=== PATIENT | female | born 1960 | race Two or more races ===

== ENCOUNTER 2022-06-25 06:11 | Day surgery (SDC) | payer OTHER ==
[2022-06-19 13:18] VITALS: BMI 35.1
[2022-06-25] MEDS ORDERED: DEXAMETHASONE SOD PHOSPHATE 10 MG/1 ML VIAL ONE (07:49)
[2022-06-25] MEDS ORDERED: MIDAZOLAM HCL 2 MG/2 ML SINGLE DOSE VIAL ONE (07:49)
[2022-06-25] MEDS ORDERED: ROPIVACAINE HCL 0.5% 30ML VIAL ONE (07:49)
[2022-06-25] MEDS ORDERED: PROPOFOL 20 ML ONE (08:30)
[2022-06-25] MEDS ORDERED: ceFAZolin SODIUM 1 GM VIAL ONE (08:48)
[2022-06-25] MEDS ORDERED: EPINEPHrine 1:1,000 1,000 MCG/ML ML ONE (08:54)
[2022-06-25] MEDS ORDERED: ONDANSETRON 4 MG/2 ML VIAL ONE ×2 (09:00→10:40)
[2022-06-25] MEDS ORDERED: DEXAMETHASONE SOD PHOSPHATE 4 MG/1 ML VIAL ONE (09:00)
[2022-06-25] MEDS ORDERED: KETOROLAC TROMETHAMINE 30 MG/1 ML VIAL ONE (10:40)
[2022-06-25] MEDS ORDERED: oxyCODONE HCL 5 MG TABLET PO PRN ×2 (11:46)
[2022-06-25] MEDS ORDERED: ONDANSETRON 4 MG/2 ML VIAL IVPUSH PRN (11:46)
[2022-06-25] MEDS ORDERED: LACTATED RINGERS SOLUTION 1,000 ML IV SCH (12:00)
[2022-06-25 12:30] VITALS: TEMP 97.5
[2022-06-25 14:19] VITALS: BP 142/78; PULSE 80; RESP 18
== END 2022-06-25 14:00 | disposition home or self-care (01) ==
LOC: FASUSAT 06:11 → UNDOADMIN 06:11 → FM/S 06:11 → EDSTATUS 08:00 → FASUSAT 14:00 → UNDODISIN 14:00
PROVIDERS: ATTEND Orthopaedic Surgery Sports Medicine
PROC: 0PBB4ZZ Excision of Left Clavicle, Percutaneous Endoscopic Approach (ICD-10-PCS; principal; 2022-06-25 09:11)
PROC: 0LS44ZZ Reposition Left Upper Arm Tendon, Percutaneous Endoscopic Approach (ICD-10-PCS; 2022-06-25 09:11)
PROC: 0RBK4ZZ Excision of Left Shoulder Joint, Percutaneous Endoscopic Approach (ICD-10-PCS; 2022-06-25 09:11)
DX: S46.012A Strain of muscle(s) and tendon(s) of the rotator cuff of left shoulder, initial encounter (principal); M75.22 Bicipital tendinitis, left shoulder; M75.52 Bursitis of left shoulder; M65.821 Other synovitis and tenosynovitis, right upper arm; S43.432A Superior glenoid labrum lesion of left shoulder, initial encounter; M19.012 Primary osteoarthritis, left shoulder; X58.XXXA Exposure to other specified factors, initial encounter; Y93.9 Activity, unspecified; Y92.9 Unspecified place or not applicable
CPT/HCPCS: 94760; C1713; C9803-CS; J1100; U0003; U0005

== ENCOUNTER 2023-03-04 06:12 | Day surgery (SDC) | payer OTHER ==
[2023-02-27 16:22] VITALS: BMI 36.2
[2023-03-04] MEDS ORDERED: MIDAZOLAM HCL 2 MG/2 ML SINGLE DOSE VIAL ONE ×2 (07:32→07:44)
[2023-03-04] MEDS ORDERED: PROPOFOL 40 ML ONE ×2 (07:32→10:20)
[2023-03-04] MEDS ORDERED: VANCOMYCIN 1,000 MG VIAL (RESTRICTED TO ID ONLY) ONE ×3 (07:33→08:40)
[2023-03-04] MEDS ORDERED: BUPIVACAINE HCL/PF 0.5% (5MG/ML) 10 ML VIAL ONE (07:44)
[2023-03-04] MEDS ORDERED: BUPIVACAINE LIPOSOME/PF (EXPAREL) 266 MG/20 ML VIAL ONE (07:44)
[2023-03-04] MEDS ORDERED: TRANEXAMIC ACID 1000 MG/10 ML VIAL IVPUSH ONE (08:00)
[2023-03-04] MEDS ORDERED: ceFAZolin SODIUM 1 GM VIAL ONE (08:40)
[2023-03-04] MEDS ORDERED: ONDANSETRON 4 MG/2 ML VIAL ONE (08:40)
[2023-03-04] MEDS ORDERED: LIDOCAINE HCL/PF 2% SDV 5ML VIAL ONE (08:40)
[2023-03-04] MEDS ORDERED: ONDANSETRON 4 MG/2 ML VIAL IVPUSH PRN ×3 (09:11→15:13)
[2023-03-04] MEDS ORDERED: oxyCODONE HCL 5 MG TABLET PO PRN ×2 (09:12→10:27)
[2023-03-04] MEDS ORDERED: LACTATED RINGERS SOLUTION 1,000 ML IV SCH ×2 (09:15→11:00)
[2023-03-04] MEDS ORDERED: TRANEXAMIC ACID 1000 MG/10 ML VIAL ONE (09:59)
[2023-03-04] MEDS ORDERED: BUPIVICAINE 0.25%/MORPH PF/KETOROLAC - 51ML DISP.SYRINGE IA ONE (10:07)
[2023-03-04] MEDS ORDERED: IBUPROFEN 800 MG/8 ML IJ IVPB PRN (10:27)
[2023-03-04] MEDS ORDERED: ACETAMINOPHEN 325 MG TABLET (FP) PO PRN (10:27)
[2023-03-04] MEDS ORDERED: SIMETHICONE 80 MG TAB.CHEW (FP) PO PRN (10:27)
[2023-03-04] MEDS ORDERED: MAG HYDROX/AL HYDROX/SIMETH 30 ML UNIT-DOSE CUP PO PRN (10:59)
[2023-03-04] MEDS ORDERED: MAGNESIUM HYDROX 2400MG/30ML ORAL SUSPENSION 30 ML CUP PO PRN (10:59)
[2023-03-04] MEDS ORDERED: ACETAMINOPHEN INJECTION 100 ML IVPB ONE (11:12)
[2023-03-04] MEDS: ACETAMINOPHEN 1000 MG/100 ML BAG IVPB ONE (11:14)
[2023-03-04] MEDS: oxyCODONE HCL 10 MG SUSTAINED ACTING TABLET PO SCH ×2 (16:19→22:03)
[2023-03-04 16:40] VITALS: RESP 18
[2023-03-04] MEDS: CEFAZOLIN SODIUM 2 GM in DEXTROSE 5%-WATER 100 ML IVPB SCH (17:17)
[2023-03-04] MEDS: KETOROLAC TROMETHAMINE 30 MG/1 ML VIAL IVPUSH SCH (17:31)
[2023-03-04] MEDS: ACETAMINOPHEN 500 MG TABLET (FP) PO SCH (18:11)
[2023-03-04] MEDS ORDERED: MIRTAZAPINE 15 MG TABLET (FP) PO SCH (22:00)
[2023-03-04] MEDS: GABAPENTIN 100 MG CAPSULE PO SCH (22:02)
[2023-03-04] MEDS: SENNOSIDES/DOCUSATE COMBO (SENNA PLUS) TABLET (UD) PO SCH (22:06)
[2023-03-05] MEDS: ACETAMINOPHEN 500 MG TABLET (FP) PO SCH ×3 (00:57→12:11)
[2023-03-05] MEDS: CEFAZOLIN SODIUM 2 GM in DEXTROSE 5%-WATER 100 ML IVPB SCH ×2 (01:00→09:12)
[2023-03-05] MEDS: ACETAMINOPHEN 1000 MG/100 ML BAG IVPB ONE (04:57)
[2023-03-05] MEDS: oxyCODONE HCL 5 MG TABLET PO PRN ×2 (05:38→12:11)
[2023-03-05] MEDS: KETOROLAC TROMETHAMINE 30 MG/1 ML VIAL IVPUSH SCH (07:44)
[2023-03-05 08:34] LABS: HEMATOCRIT 40.5 % (32.4-45.2); HEMOGLOBIN 13.6 G/dL (10.7-15.3); MCH 31.6 pg (25.7-33.7); MCHC 33.6 g/dl (32.0-36.0); MEAN CELL VOLUME 94.2 fl (80-96); MEAN PLT VOLUME 7.9 fl (7.5-11.1); PLATELET COUNT 234.4 10^3/uL (134-434); RDW 13.9 % (11.6-15.6); WHITE BLOOD COUNT 11.4 10^3/uL (4.0-10.8)
[2023-03-05 09:03] LABS: CALCIUM 8.6 mg/dl (8.5-10.1); CREATININE 0.5 mg/dl (0.6-1.3); POTASSIUM 3.9 mmol/L (3.5-5.1)
[2023-03-05] MEDS: GABAPENTIN 100 MG CAPSULE PO SCH (09:15)
[2023-03-05] MEDS: oxyCODONE HCL 10 MG SUSTAINED ACTING TABLET PO SCH (09:16)
[2023-03-05] MEDS: SENNOSIDES/DOCUSATE COMBO (SENNA PLUS) TABLET (UD) PO SCH (09:16)
[2023-03-05] MEDS ORDERED: PANTOPRAZOLE 40 MG TABLET PO SCH (10:00)
[2023-03-05] MEDS ORDERED: ASPIRIN 81 MG CHEWABLE TABLETS PO SCH (10:00)
[2023-03-05] MEDS ORDERED: metoPROLOL SUCCINATE 25 MG TAB.SR.24H (FP) PO SCH ×2 (10:00)
[2023-03-05] MEDS ORDERED: QUEtiapine FUMARATE 100 MG TABLET (FP) PO SCH (10:00)
[2023-03-05 14:37] VITALS: BP 122/59; PULSE 58; TEMP 97.5
== END 2023-03-05 16:26 | disposition home or self-care (01) ==
LOC: FASUSAT 06:12 → FM/S 11:58 → FASUSAT 03-05 16:26
PROVIDERS: ATTEND Internal Medicine
PROC: 0SRC0JA Replacement of Right Knee Joint with Synthetic Substitute, Uncemented, Open Approach (ICD-10-PCS; principal; 2023-03-04 09:08)
DX: M17.11 Unilateral primary osteoarthritis, right knee (principal)
CPT/HCPCS: 20985; 27447; C1776; S2900; 36415; 73560-TC-RT-FY; 80048; 85027; 88305-TC; 88311-TC; 94760; 97010-GP; 97116-GP; 97162-GP